=== PATIENT | female | born 1955 | race African-American/Black ===

== ENCOUNTER 2018-05-18 00:28 | Emergency (ER) | payer MEDICARE, OTHER ==
[~2018-05-18] VITALS: Ht 167.6 cm; Wt 104.3 kg
[2018-05-18 00:41] VITALS: BP 147/71
[2018-05-18] MEDS ORDERED: HYDR-971 PO (01:07)
[2018-05-18] MEDS ORDERED: ONDANSETRON ODT 4 MG TAB.RAPDIS. PO ONE (01:15)
[2018-05-18] MEDS ORDERED: HYDROcodone/APAP 5/325MG 1 TAB TABLET PO ONE (01:15)
--- NOTE | 2018-05-18 01:26 | PHYS DOC ---
Past Medical History Past Medical History: Other Additional Past Medical Histor: PTSD, EDEMA, Additional Past Surgical Histo: HEART CATH, WRIST SURGERY Alcohol Use: None Drug Use: None Adult General Chief Complaint Chief Complaint: MECHANICAL FALL HPI HPI Patient is a 62 year old female presenting with brought in by enemas after mechanical [place]. [place] she [place] directly on her chest she hit the carpeted she hit it pretty hard she is having pain right where she hit it. She was not having chest pain before she fell. She feels a little bit of pain in her back but it is not that bad. She did not hit her head she has only a mild headache no neck pain. Review of Systems Review of Systems Constitutional: Denies fever or chills [] Eyes: Denies change in visual acuity, redness, or eye pain [] HENT: Denies nasal congestion or sore throat [] Respiratory: Denies cough or shortness of breath [] GI: Denies abdominal pain, nausea, vomiting, bloody stools or diarrhea [] Musculoskeletal: Integument: Denies rash or skin lesions [] Neurologic: Deniesfocal weakness or sensory changes [] E All other systems were reviewed and found to be within normal limits, except as documented in this note. Current Medications Current Medications Current Medications Medications (Trade) Dose Ordered Sig/[facility] Start Time Stop Time Status Last Admin Dose Admin Acetaminophen/ Hydrocodone Bitart (Lortab 5/325) 2 tab 1X ONCE 05/18/18 01:15 05/18/18 01:16 DC 05/18/18 01:15 2 TAB Ondansetron HCl (Zofran Odt) 4 mg 1X ONCE 05/18/18 01:15 05/18/18 01:16 DC 05/18/18 01:15 4 MG Allergies Allergies Allergies Coded Allergies Type Severity Reaction Last Updated Verified codeine Allergy Unknown 05/18/18 Yes Physical Exam Physical Exam Constitutional: Well developed, well nourished, no acute distress, non-toxic appearance. [] HENT: Normocephalic, atraumatic, bilateral external ears normal, oropharynx moist, no oral exudates, nose normal. [] Eyes: PERRLA, EOMI, conjunctiva normal, no discharge. [] Neck: Normal range of motion, no tenderness, supple, no stridor. [] Cardiovascular:Heart rate regular rhythm, no murmur [] Lungs & Thorax: Bilateral breath sounds clear to auscultation []there is definite reproducible chest wall tenderness over the midsternum no obvious trauma was identified there but this does reproduce the pain Abdomen: Bowel sounds normal, soft, no tenderness, no masses, no pulsatile masses. [] Skin: Warm, dry, no erythema, no rash. [] Back: Mild midline thoracic tenderness no step-off Extremities: No tenderness, no cyanosis, no clubbing, ROM intact, no edema. [] Neurologic: Alert and oriented X 3, normal motor function, normal sensory function, no focal deficits noted. [] Psychologic: Affect normal, judgement normal, mood normal. [] Current Patient Data Vital Signs Vital Signs Date Time Temp Pulse Resp B/P (MAP) Pulse Ox O2 Delivery O2 Flow Rate FiO2 05/18/18 01:15 16 Room Air 05/18/18 01:00 58 99 05/18/18 00:41 97.6 147/71 (96) 97.6 EKG EKG [] Radiology/Procedures Radiology/Procedures [] Impressions: Monitor. Chest x-ray was negative acute no fracture or pneumothorax seen Course & Med Decision Making Course & Med Decision Making Pertinent Labs and Imaging studies reviewed. (See chart for details) []52-year-old female presenting with mechanical fall bumped her chest on the ground having pain that is clearly reproducible on examination chest x-ray was clear blood pressure mildly elevated recommended blood pressure follow-up in 1 month patient was agreeable to the plan prescription for [place] was given. Dragon Disclaimer Dragon Disclaimer This electronic medical record was generated, in whole or in part, using a voice recognition dictation system. Departure Departure Impression: Primary Impression: Elevated blood pressure reading Additional Impression: Chest wall pain Disposition: HOME, SELF-CARE Condition: STABLE Patient Instructions: Chest Wall Pain, Oxdj-[id number]-Iyto Scripts Hydrocodone/Apap 5-325 (NORCO 5-325 TABLET) 1 Each Tablet 1-2 EACH PO PRN Q6HRS PRN for PAIN, #15 as needed for pain Prov: DALTON VILLASENOR MD 05/18/18 Problem Qualifiers DALTON VILLASENOR MD May 18, 2018 01:26
--- NOTE | 2018-05-18 02:11 | RAD ---
CHEST PA LATERAL History: chest pain Comparison: None. Findings: The cardiomediastinal silhouette is normal. Tortuous thoracic aorta. Pulmonary vasculature is normal. The lungs are clear. No pleural effusion or pneumothorax is seen. There is no acute bone abnormality. IMPRESSION: No acute cardiopulmonary process. Electronically signed by: Calin Heath MD (05/18/2018 2:08 AM) [id number]
== END 2018-05-18 01:21 | disposition home or self-care (01) ==
LOC: ER 00:28
DX: R03.0 Elevated blood-pressure reading, without diagnosis of hypertension (principal); R07.89 Other chest pain; Z88.5 Allergy status to narcotic agent; W01.0XXA Fall on same level from slipping, tripping and stumbling without subsequent striking against object, initial encounter; Y93.89 Activity, other specified; Y92.89 Other specified places as the place of occurrence of the external cause; Y99.8 Other external cause status
CPT/HCPCS: 71046; 99284; Q0162